=== PATIENT | female | born 1995 | race Caucasian/White ===

== ENCOUNTER 2018-10-10 15:52 | Outpatient (REF) | payer OTHER, SELFPAY ==
--- NOTE | 2018-10-10 15:25 | PAPFT_PTH ---
PATIENT: Parul Edmond LOC: [facility] U#:[id number] AGE/SX: 23/F ROOM: RE10/10/[address]: Phyllis Dyer : 1995 BED: DIS: 10/10/2018 SPEC #: [id number] RECD: 10/10/18 17:46 STATUS: BENITA CHAVEZ #: [id number] DARBY: 10/10/18 15:[address]: Phyllis Dyer DEPT: FORMERLY [facility], [facility]–1983 Cytology RECD BY: Gisela Perkins ENTERED: 10/10/18 17:46 SP TYPE: PAPFT LAN DR: None Tissues: 1 - CX/ENDOCX FOR PAP SMEARS Procedures: PAP THIN PREP/[facility] Screening Comments: [id number]
[2018-10-12 14:50] LABS: Chlamydia Result Negative; GC Result Negative; Specimen Description CERVIX
== END 2018-10-10 16:12 ==
LOC: LBN 15:52
PROVIDERS: Visit Provider Obstetrics & Gynecology Gynecology
DX: Z11.3 Encounter for screening for infections with a predominantly sexual mode of transmission (principal); Z12.4 Encounter for screening for malignant neoplasm of cervix
CPT/HCPCS: 87491; 87591; 88142

== ENCOUNTER 2019-03-26 07:54 | Outpatient (CLI) | payer OTHER, SELFPAY ==
[2019-03-26 16:21] LABS: HCT 37.4 % (36.0-46.0); HGB 11.8 g/dL (12.0-15.5); Mean Corp. HGB Concentration 31.6 g/dL (32.0-36.0); Mean Corpuscular Hemoglobin 26.9 pg (27.0-33.0); Mean Corpuscular Volume 85.2 fL (80-95); Mean Platelet Volume 10.1 fL (8.0-11.0); Platelet Count 299 x1000/uL (130-400); RBC 4.39 m/cumm (4.00-5.20); RBC Distribution Width 12.6 % (11.7-14.6); White Blood Cell Count 6.84 k/cumm (4.4-10.8)
== END 2019-03-26 08:14 ==
PROVIDERS: Visit Provider Obstetrics & Gynecology Gynecology
DX: Z30.2 Encounter for sterilization (principal); Z01.812 Encounter for preprocedural laboratory examination; Z01.818 Encounter for other preprocedural examination
CPT/HCPCS: 36415; 85027; 86850; 86900; 86901

== ENCOUNTER 2019-03-28 06:11 | Day surgery (SDC) | payer OTHER, SELFPAY ==
[2019-03-28] VITALS (7 sets, daily range): BP systolic 105–131; BP diastolic 60–94; PULSE 72–92; RESP 11–25; TEMP 36–36.7; O2SAT 98–100
[2019-03-28] MEDS: Lactated Ringers 1,000 ML 125 ML IV (07:01)
[2019-03-28 07:19] LABS: Anion Gap 8.6 mmol/L (3-11); BUN 10 mg/dL (7-18); CO2 25.4 mmol/L (21.0-32.0); CREATININE 0.94 mg/dL (0.55-1.02); Calcium 8.6 mg/dL (8.5-10.1); Chloride 106 mmol/L (98-107); Glucose 86 mg/dL (70-100); Potassium 4.6 mmol/L (3.5-5.1); Sodium 140 mmol/L (136-145)
[2019-03-28] MEDS: Bupivacaine 0.25% Pres-Free 30 ML VIAL (08:00)
--- NOTE | 2019-03-28 08:05 | FALL_PTH ---
PATIENT: Parul Edmond LOC: [facility] U#:[id number] AGE/SX: 23/F ROOM: RE03/28/[address]: Phyllis Dyer : 1995 BED: DIS: 03/28/2019 SPEC #: [id number] RECD: 03/28/19 12:45 STATUS: BENITA RErCistóbal #: [id number] DARBY: 03/28/19 08:[address]: Phyllis Dyer DEPT: Surgical Specimen RECD BY: Gisela Perkins ENTERED: 03/28/19 12:46 SP TYPE: Fall OTHR DR: None Tissues: 1 - FALLOPIAN TUBE (STERILIZATION) 2 - FALLOPIAN TUBE (STERILIZATION) Procedures: GROSS AND MICRO LEVEL 2 Comments: [id number]
--- NOTE | 2019-03-28 08:22 | W.PM.DSUDISC ---
Discharge Plan Disposition Patient Disposition: HOME Condition: Good Discharge Details Attending Provider: Phyllis Dyer Primary Care Provider: None,None Home Meds and New Rx's Prescriptions: No Action bupropion HCl 150 mg tablet extended release 24 hr 150 mg PO QAM Qty: 60 RF: FE 1.5/30 (28) 1.5 mg-30 mcg (21)/75 mg (7) tablet 1 tab PO DAILY Qty: 56 RF: 2 Discharge Instructions Additional Instructions: Please make a follow up appointment with Dr. Dyer in a week. Stand Alone Forms: DSU Post Gynecology Surgery Activity:: Activity as Tolerated Remove Dressings/Wound Care:: 24 hours Shower/Bathe:: 24 hours Diet:: As Tolerated Discharge Data Discharge Date/Time-TO BE ENTERED AT DEPARTURE: 03/28/19 08:25 DS: Diagnosis Discharge Diagnosis (1) Sterilization: Start date: 03/28/19 Status: Acute
[2019-03-28] MEDS: oxyCODONE 5 mg/Acetaminophen 325 mg TAB PO (09:39)
--- NOTE | 2019-03-29 14:02 | ROE_ITS ---
Operative Note Operative Note DATE OF PROCEDURE: 03/28/19 PRE-OP DIAGNOSIS: Desires sterilization POST-OP DIAGNOSIS: same PROCEDURE: Laparoscopic bilateral salpingectomy SURGEON: Phyllis Dyer AIRWORTHINESS SAFETY INSPECTOR: Angeles Gamble ANESTHESIA: AIDA ESTIMATED BLOOD LOSS: 5 PATHOLOGY: other (Bilateral fallopian tubes to pathology) COMPLICATIONS: None Patient was transported to: PACU Patient's condition: stable Indications: 23-year-old G2, P1 female who was counseled regarding permanent sterilization. She declined long-acting reversible contraception. She is sure that she does not desire any future pregnancies even if her life circumstances were to change. Findings: Normal pelvis normal upper abdomen normal adnexa normal uterus Procedure Description: Patient was taken to the operating room where she is placed in the dorsal supine position and general endotracheal anesthesia was administered without difficulty. She was prepped and draped in the usual sterile fashion. SCDs were in place and no antibiotics were administered. A surgical timeout was performed. Attention was turned to the patient's abdomen where quarter percent Marcaine was used to infiltrate the base of the umbilicus. A 5mm skin incision was made in a vertical fold. A transabdominal ultrasound was used to measure the depth of the subcutaneous tissue and the skin around the umbilicus was tented up and a varies needle attached to carbon dioxide flow was inserted under ultrasound guidance with entry into the abdomen visualized along with a concomitant drop in the intra-abdominal pressure. Pneumoperitoneum was achieved and a 5 mm Visiport trochar was introduced through the umbilical incision and intra-abdominal placement confirmed by use of the laparoscope. Patient was placed in Trendelenburg and under direct visualization two 5 mm ports were placed in the right and left lower quadrants respectively after infiltration of the sites with quarter percent Marcaine prior to the skin incision with a scalpel. The left fallopian tube was located, grasped and followed out to its fimbriated end and a LigaSure device was then used to clamp, cauterize and transect the proximal right fallopian tube of the right uterine cornua. LigaSure was then used to sequentially clamp, cauterize and transected the mesosalpinx and attachments to the right ovary out to the fimbriated end. Transected the fallopian tube was then delivered intact through the R lower 5mm port. The right fallopian tube was grasped, followed out to its fimbriated end, sequentially cauterized and transected along the mesosalpinx to the right uterine cornua. The right uterine cornua was then cauterized and transected. The right fallopian tube was delivered through the right 5 mm trocar. Both pedicles were noted to be hemostatic. Final inspection of the pedicles was performed and under direct visualization both lower trochars were removed and t he sites found to be hemostatic. Pneumoperitoneum reduced and the 5 mm trocar umbilical port was removed and all skin incisions were sealed with skin glue. The patient was awakened, extubated and transported to recovery area in stable condition all sponge lap needle counts correct x2.
== END 2019-03-28 10:50 | disposition home or self-care (01) ==
LOC: SUR 06:11
PROVIDERS: Visit Provider Obstetrics & Gynecology Gynecology
PROC: (CPT 58661; principal; 2019-03-28 07:30)
DX: Z30.2 Encounter for sterilization (principal)
CPT/HCPCS: 58661; 36415; 80048; 81025; 88302; J1100; J1885; J2250; J2405; J3010

== ENCOUNTER 2021-09-05 18:01 | Emergency (ER) | payer OTHER, SELFPAY ==
[2021-09-05 18:07] VITALS: BP 129/77; PULSE 83; RESP 16; TEMP 36.7; O2SAT 100
--- NOTE | 2021-09-05 18:45 | DI.CT_ITS ---
Exam(s) CT HEAD WO EXAM: CT HEAD WO CLINICAL HISTORY: Fall, head injury. TECHNIQUE: Imaging Protocol: Axial computed tomography images with coronal and sagittal reformatted images were created and reviewed COMPARISON: No exams were available for comparison FINDINGS: There are no skull fractures nor fluid in the visualized paranasal sinuses. There is no evidence of intracranial hemorrhage, mass effect, or shift of midline structures. There are no extra-axial fluid collections. The ventricles are not enlarged or shifted and there is no blo od within the ventricular system nor within the basal cisterns. IMPRESSION: No acute intracranial findings on this noninfused CT scan of the brain. RADIATION DOSE DELIVERED: 664.58mGy.cm Total DLP DATA REPOSITORY: All CT scans at this facility are submitted to the National Radiology Data Registry (NRDR) Dose Index Registry (DIR) with the [employer] (ACR). RADIATION OPTIMIZATION: All CT scans at this facility use at least one of these dose optimization te chniques: automated exposure control; mA and/or kV adjustment per patient size (includes targeted exa ms where dose is matched to clinical indication); or iterative reconstruction.
[2021-09-05 18:56] VITALS: BP 118/89; PULSE 85; RESP 16; TEMP 36.6; O2SAT 99
--- NOTE | 2021-09-05 19:00 | W.ED.GENAD ---
Discharge Plan Disposition Patient Disposition: HOME Condition: Stable Discharge Details Clinical Impression: Closed head injury Primary Care Provider: None,None ED Provider: Saira Montero Home Meds and New Rx's Prescriptions: No Action citalopram [Celexa] 20 mg tablet 20 mg PO DAILY Qty: 90 0RF Rx Instructions: Take one tablet nightly as we discusssed. Discharge Instructions Instructions: Concussion (ED), Head Injury (ED) Additional Instructions: At this time head CT shows no bone fractures or bleeding or any intracranial abnormality. Follow up with primary care provider in 3-5 days. Return to ED sooner if any worsening or concerns. Increase oral fluids. Please take Tylenol or Ibuprofen with food every 4-6 hours as needed for pain and swelling. You may apply ice to the area as needed. Medical Decision Making 26-year-old female presents to the ER chief complaint of closed head injury which occurred prior to arrival. Patient reports that she slipped on the ice and fell back hitting the back of her head. She denies any loss of consciousness denies any neck pain. She reports that initially she felt dazed and she developed a headache approximately 20 minutes ago. She denies any nausea vomiting or any other injuries. She does have a small hematoma noted to her occipital scalp, no laceration or bleeding noted. She is alert and oriented x4 no focal neuro deficits noted. CT head without contrast ordered and, Tylenol. EXAM: ? CT HEAD WO CLINICAL HISTORY: ? Fall, head injury. ? TECHNIQUE:? Imaging Protocol: Axial computed tomography images with coronal and sagittal reformatted images were created and reviewed COMPARISON:? No exams were available for comparison FINDINGS: ?There are no skull fractures nor fluid in the visualized paranasal sinuses. There is no evidence of intracranial hemorrhage, mass effect, or shift of midline structures.? There are no extra-axial fluid collections.? The ventricles are not enlarged or shifted and there is no blood within the ventricular system nor within the basal cisterns. IMPRESSION: No acute intracranial findings on this noninfused CT scan of the brain. Directions given to patient closed head injury and concussion instructions given to patient. Relayed strict return instructions and home care. This text was generated using [employer] system, please disregard any oddities of phrase or misspellings. HPI General Mode of arrival: ambulatory. Date/Time Provider Initiated Documentation: 09/05/21 18:56. Limitations to Documentation: no limitations. Information obtained by: patient and RN notes reviewed. HPI Narrative: 26-year-old female presents to the ER chief complaint of closed head injury which occurred prior to arrival. Patient reports that she slipped on the ice and fell back hitting the back of her head. She denies any loss of consciousness denies any neck pain. She reports that initially she felt dazed and she developed a headache approximately 20 minutes ago. She denies any nausea vomiting or any other injuries. She does have a small hematoma noted to her occipital scalp, no laceration or bleeding noted. She is alert and oriented x4 no focal neuro deficits noted. Related Data Home Medications Medication Instructions Recorded Confirmed citalopram 20 mg tablet (Celexa) 20 mg PO DAILY #90 tab 02/05/21 09/05/21 Previous Rx's Medication Instructions Recorded citalopram 20 mg tablet (Celexa) 20 mg PO DAILY #90 tab 02/05/21 Allergies Allergy/AdvReac Type Severity Reaction Status Date / Time No Known Drug Allergies Allergy Unverified 09/05/21 18:10 General Stated Complaint: HeadInjury CHIKIS: 3 Review of Systems All systems reviewed & are unremarkable except as noted in HPI and below Constitutional Constitutional: Reports headache(s) ENT Ears, Nose, Mouth, and Throat: Reports headache(s), Denies epistaxis and Denies neck pain Musculoskeletal Musculoskeletal: Denies neck pain Neurologic Neurologic: Reports headache(s) [facility] [place] All Active Problems (Updated 09/05/21 @ 20:04 by Saira Montero) Closed head injury (Acute) Well woman exam (no gynecological exam) (Acute) Depression (Chronic) Well woman exam (Acute) Sterilization (Acute) 03/28/19. laparoscopic bilateral salpingectomy Post-traumatic stress disorder (Acute) Generalized anxiety disorder (Acute) 09/2018 Buspar. 03/2019 Buspar d/c'd. Bupropion 150mg XL started. Anxiety and depression (Acute 01/05/18) Rx with citalopram 12/2017 Medical History Anxiety longstanding. currently not taking meds. Contraception 11/13/14 Mirena IUD inserted 3mo PP 12/26/14 Mirena IUD out. 6/26/15 Nexplanon inserted 02/27/15 Nexplanon out. NuvaRing initiated. 2019. partner has vasectomy Family History Other Cancer Mental disorder Social History Smoking/Tobacco Use Status: Never Smoking risk assessment performed?: Yes Alcohol Intake: never Drug use: Never Substance use type: does not use Household members: significant other, children and other Details: BF Wilber, son Don, and Wilber' 13, 9yo daughters Number of Children: 1 Do you need help understanding health information?: Never Sexually active: Yes Seatbelt use: always Do you feel safe at home: Yes Do you feel safe in your relationship?: Yes Additional Social history: 07/23/14. [employer]. employed as water safety teacher - infant room. Beginning [employer] college classes. Female Reproductive History Menstrual control method: none History History 2 Para Hx # Term Pregnancies 1 Multiple births Hx # Pregnancies Ectopic pregnancies AB induced Hx Number of Living Children AB spontaneous Exam Narrative Exam Narrative: General: Well Developed, Awake and Alert, conversant. Skin: Warm and Dry HEENT: Head: Small hematoma noted to the occipital scalp. No palpable deformities, Normocephalic Eyes: Pupils PERRLA, EOM's intact. No periorbital eccymosis or step off Ears: Canal patent. Tympanic membranes are clear . No puentes's sign, no hemptympanum. Nose/Face: Atraumatic. Facial bones nontender to palpation and stable with manipulation. Mouth/Throat: No intraoral trauma. Teeth and mandible are intact. Neck: No midline tenderness, no step off, no deformity to palpation of C-spine. Trachea midline. Pelvis: Nontender to palpation and stable to compression. Femoral pulses strong and equal Extremities: no surface trauma. Sensation intact. Peripheral pulses intact and equal. Neuro: ANO x4, GCS 15, cranial nerves II through XII intact. Motor and sensory exam nonfocal. Reflexes are symmetric. Course Vital Signs Vital signs: Vital Signs Temperature 36.7 C 09/05/21 18:07 Pulse 83 09/05/21 18:07 Respiratory Rate 16 09/05/21 18:07 Blood Pressure 129/77 09/05/21 18:07 Pulse Oximetry 100 09/05/21 18:07 Temperature 36.6 C 09/05/21 18:56 Temperature Source Oral 09/05/21 18:56 Pulse 85 09/05/21 18:56 Respiratory Rate 16 09/05/21 18:56 Respiratory Effort 09/05/21 18:53 Respiratory Depth Normal 09/05/21 18:53 Respiratory Pattern Normal 09/05/21 18:53 Blood Pressure 118/89 09/05/21 18:56 Blood Pressure Position Supine 09/05/21 18:07 Pulse Oximetry 99 09/05/21 18:56 Oxygen Delivery Method Room Air 09/05/21 18:56 Oxygen Flow Rate 0 09/05/21 18:56 Pain Level 5 09/05/21 18:07
[2021-09-05] MEDS: Acetaminophen 500 MG TAB 1000 MG PO (19:15)
[2021-09-05 19:27] VITALS: BP 119/88; PULSE 87; RESP 18; TEMP 36.8; O2SAT 99
--- NOTE | 2021-09-05 20:01 | DI.VRAD_ITS ---
PROCEDURE INFORMATION: Exam: CT Head Without Contrast Exam date and time: 09/05/2021 7:00 PM Age: 26 years old Clinical indication: Condition or disease; Other: Fall, head injury TECHNIQUE: Imaging protocol: Computed tomography of the head without contrast. COMPARISON: No relevant prior studies available. FINDINGS: Brain: Normal. No hemorrhage. Unremarkable white matter. No mass effect. Cerebral ventricles: No ventriculomegaly. Paranasal sinuses: Visualized sinuses are unremarkable. No fluid levels. Mastoid air cells: Visualized mastoid air cells are well aerated. Bones/joints: Unremarkable. No acute fracture. Soft tissues: Unremarkable. IMPRESSION: No acute intracranial abnormality. Dictated and Authenticated by: Everardo Anders MD. Ordering:LIVE Chávez MD
== END 2021-09-05 20:04 | disposition home or self-care (01) ==
PROVIDERS: Emergency Provider Registered Nurse Emergency
DX: S09.8XXA Other specified injuries of head, initial encounter (principal); W00.0XXA Fall on same level due to ice and snow, initial encounter; R51.9 Headache, unspecified
CPT/HCPCS: 99284; 70450; 99283

== ENCOUNTER 2021-12-03 12:18 | Outpatient (REF) | payer OTHER, SELFPAY ==
--- NOTE | 2021-12-03 11:05 | PAPFT_PTH ---
PATIENT: Parul Edmond LOC: [facility] U#:[id number] AGE/SX: 26/F ROOM: RE12/03/[address]: Phyllis Dyer : 1995 BED: DIS: 12/03/2021 SPEC #: [id number] RECD: 12/03/21 12:59 STATUS: BENITA REQ #: [id number] DRABY: 12/03/21 11:[address]: Phyllis Dyer DEPT: [facility] Cytology RECD BY: Gisela Perkins ENTERED: 12/03/21 12:59 SP TYPE: PAPFT OT DR: None Tissues: 1 - CX/ENDOCX FOR PAP SMEARS Procedures: PAP THIN PREP/[facility] Screening Comments: [id number]
== END 2021-12-03 12:19 | disposition home or self-care (01) ==
LOC: LBN 12:18
PROVIDERS: Visit Provider Obstetrics & Gynecology Gynecology
DX: Z12.4 Encounter for screening for malignant neoplasm of cervix (principal)
CPT/HCPCS: 88142

== ENCOUNTER → 2024-02-06 01:18 | Outpatient (CLI) | payer BC, SELFPAY ==
--- NOTE | 2024-02-06 | DI.US_ITS ---
Exam(s) MAMMO DIAGNOSTIC BI US BREAST LT LIMITED EXAM: MAMMO DIAGNOSTIC BI and U/S breast LT limited CLINICAL HISTORY: 2cm lump, 6 o'clock below areola, L breast,n63.20. TECHNIQUE: Craniocaudal and mediolateral oblique Full Field Digital Mammography views with Computer Aided Diagnosis followed by Tomosynthesis and left breast ultrasound. The 11 and 12 o'clock position of the left breast was evaluated sonographically. In addition, the 4 o'clock position of the left b reast was evaluated sonographically. COMPARISON: This is a baseline mammogram. There are no priors for comparison. FINDINGS: Mammography/Tomosynthesis: Masses/Architectural Distortion: None seen. Microcalcifictions: No suspicious pleomorphic-type are seen. Skin Thickening/Nipple Retraction: None. Limited left breast US: Echotexture: Normal appearance of the glandular tissue. Shadowing: No suspicious foci. Cyst: There is an anechoic 0.6 x 0.5 x 0.7 cm lesion at the 4 o'clock position of the left breast 3 c m from the nipple most suggestive of a cyst. Solid lesions: None seen. Ductal dilation: None. IMPRESSION: 1. No definite evidence of malignancy is noted. 2. A six-month follow-up limited left breast ultrasound is requested for re-evaluation. 3. The findings were discussed with the patient on the date of the examination. BI-RADS Category 3 - 6 month - Probably Benign Finding: Recommend follow-up imaging in 6 months Breast Density - Category C - Heterogeneously dense Breast density Category C or D implies that the patient has dense breast tissue. Dense breast tissue can make it harder to find cancer on a mammogram. Dense breast tissue is also associated with an incr eased risk of breast cancer. This information about the result of the mammogram report was provided to the patient to raise their awareness. Use this report when you speak with the patient about their risks for breast cancer, which includes their family history. At that time, you may recommend additional screening tests (Ultrasoun d or MRI) as these tests may add significant information. A negative radiographic report should not delay biopsy if a dominant or clinically suspicious mass is present. Up to ten percent of cancers are not identified on mammography. A negative report may reinforce clinical impression. Adenosis and dense breasts may obscure an underlying neoplasm. False positive reports average 6 to 10%. Patient will receive a letter notifying them of these results.
== END ==
PROVIDERS: Visit Provider Obstetrics & Gynecology Gynecology
DX: N63.20 Unspecified lump in the left breast, unspecified quadrant (principal); R92.332 Mammographic heterogeneous density, left breast
CPT/HCPCS: 76642; 77062; 77066; G0279

== ENCOUNTER 2024-07-03 02:54 | Outpatient (CLI) | payer BC, SELFPAY ==
[2024-07-03 11:19] LABS: HGB 10.6 g/dL (11.2-15.7); MCH 24.1 pg (27.0-33.0); MCHC 30.3 % (32.0-36.0); MCV 80 fL (80-95); MPV 9.3 fL (8.0-11.0); Platelet Count 277 10^3/uL (130-400); RBC 4.39 10^6/uL (3.93-5.22); RDW 14.5 % (11.7-14.6); RDW-SD 42.5 fL; WBC 6.09 10^3/uL (4.4-10.8)
[2024-07-03 12:06] LABS: ALT 10 U/L (14-59); AST 11 U/L (15-37); Albumin 3.6 g/dL (3.4-5.0); Alkaline Phosphatase 99 U/L (46-116); Anion Gap 6.6 mmol/L (3-11); BUN 12 mg/dL (7-18); Bilirubin, Total 0.22 mg/dL (0.2-1.0); CO2 25.4 mmol/L (21.0-32.0); CREATININE 0.8 mg/dL (0.55-1.02); Calcium 8.6 mg/dL (8.5-10.1); Chloride 106 mmol/L (98-107); Estimated GFR 102.86 (mL/min/1.73m2); Glucose 90 mg/dL (74-106); Potassium 4.4 mmol/L (3.5-5.1); Sodium 138 mmol/L (136-145); Total Protein 7.4 g/dL (6.4-8.2)
== END 2024-07-03 02:55 | disposition home or self-care (01) ==
LOC: LBO 02:54
PROVIDERS: Visit Provider Obstetrics & Gynecology Gynecology
DX: Z01.818 Encounter for other preprocedural examination (principal)
CPT/HCPCS: 36415; 80053; 85027; 86850; 86900; 86901

== ENCOUNTER 2024-07-04 10:32 | Observation (INO) | payer BC, SELFPAY ==
[2024-07-04] VITALS (31 sets, daily range): BP systolic 93–124; BP diastolic 44–85; PULSE 49–83; RESP 11–18; TEMP 36–36.8; O2SAT 95–100; BMI 24.0
--- NOTE | 2024-07-04 06:54 | ANES.PREOP_ITS ---
General Info Date of Service Date Performed: 07/04/24 Height: 5 ft 6 in Weight: 67.7 kg Body Mass Index (BMI): 24.0 Surgical Procedure: Operation Date: 07/04/24 07:40 Proposed Procedure Side Surgeon p Hysterectomy Vaginal Laparoscopic Assist Phyllis Dyer MD Meds Allergies and Home Medications Allergies Allergy/AdvReac Type Severity Reaction Status Date / Time No Known Allergies Allergy Verified 07/04/24 06:23 Home Medication ?Medication ?Instructions ?Recorded multivitamin 1 tab PO DAILY 07/03/24 Current Visit Medications: Current Medications Generic Name Dose Route Start Last Admin Trade Name Freq PRN Reason Stop Dose Admin Cefazolin Sodium/Dextrose 2 gm in 50 mls @ 100 mls/hr 07/04/24 06:00 Ancef Duplex IVPB 07/04/24 23:59 PREOP ESA Sodium Chloride 1,000 mls @ 80 mls/hr 07/04/24 06:30 Saline 1000ml Bag IV 08/03/24 06:29 INFUSION ESA IV Miscellaneous Supplies 1 each 07/04/24 06:00 Iv Access IV 07/04/24 23:59 DIRECTED ESA Sodium Chloride 0 ml 07/04/24 06:00 Normal Saline Flush 10 Ml Syr IV 07/04/24 23:59 PRN PRN Sodium Chloride 0 ml 07/04/24 06:00 Normal Saline 10 Ml Vial IJ 07/04/24 23:59 DIRECTED PRN Sterile Water 0 ml 07/04/24 06:00 Water,Injection,Sterile 10 Ml Vial IJ 07/04/24 23:59 DIRECTED PRN PFSH Active Problems Active Problems: Problem Status Onset Code Pre-op exam Acute Z01.818 Heavy menses Acute N92.0 Dysmenorrhea Acute N94.6 Left breast lump Acute N63.20 Depression Chronic F32.9 Post-traumatic stress disorder Acute F43.10 Generalized anxiety disorder Acute F41.1 Anxiety and depression Acute 01/05/18 F41.9, F32.9 Medical History Medical History Sterilization 03/28/19. laparoscopic bilateral salpingectomy Anxiety longstanding. currently not taking meds. Contraception 11/13/14 Mirena IUD inserted 3mo PP 12/26/14 Mirena IUD out. 01/10/15 Nexplanon inserted 8/13/15 Nexplanon out. NuvaRing initiated. 2019. partner has vasectomy Medical History Comments:: Pt. states not potential triggers from PTSD as this t sydnee. Tobacco Smoking/Tobacco Use Status: Never Passive smoking exposure: No Alcohol Alcohol Intake: never Substance Use Substance use: Never Substance use type: does not use Prental History History 2 Para Hx # Term Pregnancies 1 Multiple births Hx # Pregnancies Ectopic pregnancies AB induced Hx Number of Living Children AB spontaneous Vital Signs and Lab Results Vital Signs Most Recent Vital Signs in EMR: Most Recent Vital Signs Temp Pulse Resp BP Pulse Ox 36.8 C 83 16 124/85 100 07/04/24 06:35 07/04/24 06:35 07/04/24 06:35 07/04/24 06:35 07/04/24 06:35 Lab Results Blood Type / Crossmatch: Antibody Screen NEGATIVE 07/03/24 Complete Blood Count: White Blood Count 6.09 10^3/uL (4.4-10.8) 07/03/24 11:12 Red Blood Count 4.39 10^6/uL (3.93-5.22) 07/03/24 11:12 Hemoglobin 10.6 g/dL (11.2-15.7) L 07/03/24 11:12 Hematocrit 35.0 % (36.0-46.0) L 07/03/24 11:12 Platelet Count 277 10^3/uL (130-400) 07/03/24 11:12 Complete Metabolic Panel: Sodium 138 mmol/L (136-145) 07/03/24 11:12 Potassium 4.4 mmol/L (3.5-5.1) 07/03/24 11:12 Chloride 106 mmol/L (98-107) 07/03/24 11:12 Carbon Dioxide 25.4 mmol/L (21.0-32.0) 07/03/24 11:12 BUN 12 mg/dL (7-18) 07/03/24 11:12 Creatinine 0.8 mg/dL (0.55-1.02) 07/03/24 11:12 Est GFR (CKD-EPI 2020) 102.86 (mL/min/1.73m2) 07/03/24 11:12 Calcium 8.6 mg/dL (8.5-10.1) 07/03/24 11:12 Albumin 3.6 g/dL (3.4-5.0) 07/03/24 11:12 Glucose 90 mg/dL (74-106) 07/03/24 11:12 Liver Function Panel: Alanine Aminotransferase (ALT/SGPT) 10 U/L (14-59) L 07/03/24 1 1:12 Aspartate Amino Transf (AST/SGOT) 11 U/L (15-37) L 07/03/24 11: 12 Coagulation Panel: No Data to Display Cardiac Panel: No Data to Display Arterial Blood Gas: No Data to Display Venous Blood Gas: No Data to Display Pancreas Panel: No Data to Display Thyroid Panel: No Data to Display Infectious Disease: No Data to Display Blood Cultures: No Data to Display Toxicology Panel: No Data to Display Panel: No Data to Display Anesthesia Assessment and Plan Anesthesia History Personal History: No History of Anesthesia Complications Family History: No Family History of Anesthesia Complications Exercise Tolerance Exercise Tolerance: Metabolic Equivalents>4 Pertinent Negatives Pertinent Negatives: No Symptoms of GERD, No Major Cardiovascular Symptoms or Complaints, No Major Pulmonary Symptoms or Complaints and No History of CVA/TIA Cardiac & Pulmonary Exam Cardiac Exam: Normal S1/S2 Heart Sounds Pulmonary Exam: Clear Bilateral Breath Sounds Implantable Cardiac Device Does patient have a Pacemaker or an ICD?: No Airway Exam Known Difficult Airway: No Mallampati Class: 2 Mouth Opening: Normal (> 3cm) Thyromental Distance: Greater than 3 cm Neck Range of Motion: Full ROM Neck Circumference: Normal Teeth Condition: Normal Dentition ASA Classification ASA Score: ASA 1 Emergency Case?: No NPO Status NPO Status: NPO Clears >2 hours, Solids >8 hours Status Status: Negative HCG Anesthesia Plan Resuscitation Status: Full Code Anesthesia Technique: General Anesthesia Airway Planned: Endotracheal Tube Pain Management: Intrathecal Analgesia (Post operative pain control) Monitors Used: Standard Monitors and SedLine
[2024-07-04] MEDS: Normal Saline 1,000 ML 80 ML IV (06:59)
[2024-07-04] MEDS: ceFAZolin 2 GM/50 ML BAG IVPB (08:02)
[2024-07-04] MEDS: Bupivacaine 0.25% Pres-Free 30 ML VIAL (08:34)
[2024-07-04] MEDS: Lidocaine 1% Multi-Dose W/EPI 1/100,000 50 ML VIAL (08:48)
--- NOTE | 2024-07-04 09:16 | UTER_PTH ---
PATIENT: Parul Edmond LOC: U#:[id number] AGE/SX: 28/F ROOM: 217 RE07/04/[address]: Phyllis Dyer : 1995 BED: A DIS: 07/05/2024 SPEC #: [id number] RECD: 07/04/24 13:00 STATUS: BENITA CHAVEZ #: [id number] DARBY: 07/04/24 09:[address]: Phyllis Dyer DEPT: Surgical Specimen RECD BY: Gisela Perkins Tissues: 1 - UTERUS W OR W/O OVARIES(NOT TUMOR/PROLAPSE) Procedures: GROSS AND MICRO LEVEL 5 Comments: [id number]
[2024-07-04] MEDS: fentaNYL 100 MCG/2 ML VIAL IVP (10:44)
[2024-07-04] MEDS: Lactated Ringers 1,000 ML 125 ML IV ×2 (12:14→20:16)
[2024-07-04] MEDS: Acetaminophen 500 MG TAB PO ×2 (12:26→17:50)
[2024-07-04] MEDS: Ketorolac 30 MG/ML VIAL IVP ×2 (15:49→21:02)
[2024-07-04] MEDS: Normal Saline Flush 10 ML SYR IV (15:49)
--- NOTE | 2024-07-04 16:47 | W.PM.OP ---
Operative Note Operative Note PRE-OP DIAGNOSIS: dysmenorrhea POST-OP DIAGNOSIS: same PROCEDURE: laparoscopic assisted vaginal hysterectomy and bladder cystoscopy SURGEON: Phyllis Dyer ASSISTING SURGEON: Ashley Newsome ANESTHESIA TYPE: General LMA/ETT and Spinal Refer to Anesthesia Record ESTIMATED BLOOD LOSS: 50 PATHOLOGY: other (uterus and cervix) COMPLICATIONS: None Patient was transported to: PACU Patient's condition: stable Indications: 27 yo who 3yr hx of heavy, painful regular menses. Heavy flow with clots has interfered with ADLs. Pt reports poor tolerance of hormonal bases contraception. She had a BTL for the purpose of avoiding any hormonal contraception. Pt requests definitive treatment in the form of a hysterectomy. Findings: Filmy adhesions of the R pelvic side wall to the small intestines. The adhesions were not in the operative field and were not reduced. Normal appearing uterus and adnexa. Functional cyst L ovary. Normal upper abdomen. Procedure Description: Patient was taken to the operating room where she received spinal anesthesia. She was then placed in the dorsal supine position and general endotracheal anesthesia was administered without difficulty. She was positioned in the dorsal lithotomy position in yellowfin stirrups with SCDs in place. After being prepped and draped in the usual sterile fashion a surgical timeout was performed. She received 2 g of Ancef prior to skin incision. Hobbs catheter was placed to gravity drainage. A bivalve speculum was placed in the vagina the anterior lip of the cervix was grasped with a single-tooth tenaculum. A uterine manipulator was successfully inserted into the uterine cavity and left in place for the remainder of the case. The single tooth tenaculum and the speculum were removed. Attention was then turned to the patient's abdomen. The umbilical fold was infiltrated with 0.25% Marcaine without epinephrine. A scalpel was then used to make a 12mm vertical skin incision in the umbilical fold. Two penetrating towel clips were used to tent up the skin and through the periumbilical incision and a Veres needle was introduced into the abdomen with carbon dioxide as the distention medium. Intra-abdominal placement was confirmed by a drop in the intra-abdominal pressure. Once a pneumoperitoneum was established a 12 mm Visiport was placed under direct visualization. Patient was then placed in Trendelenburg position. The skin was infiltrated with 1cc of 0.25% Marcaine without epinephrine at two sites 6 cm diagonal from the umbilical incision. Those sites were incised with a scalpel and two 5 mm lower ports were placed under direct visualization. After careful inspection of the pelvis a LigaSure electrocautery device was used to clamp, cauterize and sequentially transect the right proper ovarian ligament from its attachment to the body of the uterus. The right round ligament and right broad ligament were then clamped, cauterized and transected to the level of the lower uterine segment. The vesico-uterine peritoneum was incised and the the from the lower uterine segment and mobilized off of the body of the cervix. The pedicles of the right uterine round and broad ligaments were inspected and noted to be hemostatic. On the contralateral side the left proper ovarian ligament, round, and right broad ligament were sequentially clamped, cauterized and transected using the Ligasure device to the level of the insertion of the uterine artery. The remaining the vesicouterine peritoneum was incised across the lower uterine segment and the bladder flap created using the Ligasure device and gently counter traction. All pedicles were inspected and noted to be hemostatic. Decision was made to proceed with the vaginal portion of the case. Laparoscopic instruments were removed from the ports , the pneumoperitoneum was reduced, and the was abdomen covered with sterile drape. A weighted vaginal speculum was placed in the vagina and the anterior and posterior lips of the cervix were grasped with Atvo clamps. Body of the cervix was circumferentially infiltrated with 1% lidocaine solution of epinephrine. A circumferential incision of the cervical epithelium was made with a Bovie electrocautery. The posterior cul-de-sac was entered sharply and through the this incision a long billed weighted speculum was placed. The left and right uterosacral ligament complexes were identified clamped, transected and suture-ligated and the suture held long. The vesicouterine fascia was identified and the anterior cul-de-sac bluntly sharply. Through this incision a curved right angled retractor was inserted and used to retract the bladder away from the operative field. The remaining right and left broad ligament attatchments were sequentially clamped, cauterized, and transected and the specimen was passed off of the operative field. The vaginal cuff was reapproximated in a horizontal fashion with a running suture of 0 Vicryl. Instruments removed from the vagina and attention was again turned to the abdomen where a pneumoperitoneum was reestablished and the pelvis inspected using the laparoscope. The vaginal cuff was intact and was hemostatic as were the round ligament and broad ligament pedicles. The instruments were removed from the port sites, the pneumoperitoneum reduced and the ports removed. The fascia of the periumbilical skin incision was closed with interrupted suture of 0 Vicryl. The skin of all port site incisions were reapproximated with a subcuticular closure of 4-0 Monocryl and and covered with sterile steri-strips and a band-aid. A cystoscopy was performed with both ureteral jets were patent with a brisk eflux of urine noted from each. The bladder was inspected and was normal in appearance. Hobbs catheter was reinserted to gravity drainage and the patient was placed in the dorsal supine position, awakened, extubated, and transported recovery area in stable condition. All sponge lap needle counts correct x2. Date of Procedure: 07/04/24
--- NOTE | 2024-07-04 20:33 | W.PM.PROGNOT ---
Date of Service Date of service: 07/04/24 Time of Service: 19:00 Assessment and Plan Assessment and plan (1) S/P laparoscopic assisted vaginal hysterectomy (LAVH): Status: Acute Assessment and plan: POD 0. Satisfactory postop course. Pt will have cao discontinued in am and OOB. Plan discharge to home in am. Subjective Subjective Patient reports: no new complaints and tolerating a regular diet Interval history since last seen: Pt reports generalized soreness, otherwise feels well. Exam Narrative Exam Narrative: POD 0 s/p LAVH for hx of dysmenorrhea. Surgery was uncomplicated. Pt sitting up in bed visiting with family. Const General: no acute distress Nutritional Appearance: well nourished Orientation: alert, awake and oriented x3 Neck Neck: normal visual inspection Resp Effort & Inspection: normal respiratory effort GI Inspection: incision (covered with Mepilex dressing) Palpation: soft and nontender Skin General skin exam: no rashes or lesions noted Neuro Cognition: normal cognition Speech: speech normal Gait: normal gait Extrem General: full ROM (SCDs in place) Psych Speech and Movement: speech and movement normal Mood: congruent mood Affect: normal affect Objective Last Vital Signs Temp 97.7 F 07/04/24 19:48 Pulse 72 07/04/24 19:48 Resp 18 07/04/24 19:48 BP 122/77 07/04/24 19:48 Pulse Ox 100 07/04/24 19:48 PAWSS Have you Been Recently Intoxicated or Drunk Within the Last 30 days?: No Have you Ever Experienced Previous Episodes of Alcohol Withdrawal?: No Have you ever Experienced Withdrawal Seizures?: No Have you ever Experienced Delirium Tremens(DT)s?: No Have you ever undergone Alcohol Rehabilitation Treatment (i.e, inpt ot outpatient treatment programs)?: No Have you ever Experienced Blackouts?: No Have you ever Combined Alcohol with other Downers within the last 90 days?: No Have you ever Combined Alcohol with any other Substance of Abuse during the last 90 days?: No Positive Blood Alcohol level on Presentation? [PCS.BAL]: No Result: 0 Time Spent with Patient Time Spent with Patient: <25 minutes Time was spent: preparing to see the patient(eg.review tests) and counseling the patient
[2024-07-04] MEDS: Docusate Sodium 100 MG CAP PO (21:02)
[2024-07-05] MEDS: Ketorolac 30 MG/ML VIAL IVP (03:11)
[2024-07-05 03:20] VITALS: BP 102/56; PULSE 84; RESP 16; TEMP 37.3; O2SAT 99
[2024-07-05] MEDS: Acetaminophen 500 MG TAB PO ×2 (04:05→09:39)
[2024-07-05] MEDS: oxyCODONE 5 MG TAB PO (06:27)
[2024-07-05 07:09] LABS: HCT 28.5 % (36.0-46.0); HGB 8.8 g/dL (11.2-15.7); MCH 24.4 pg (27.0-33.0); MCHC 30.9 % (32.0-36.0); MCV 79 fL (80-95); MPV 10.1 fL (8.0-11.0); Platelet Count 214 10^3/uL (130-400); RBC 3.61 10^6/uL (3.93-5.22); RDW 14.5 % (11.7-14.6); RDW-SD 42.3 fL; WBC 12.97 10^3/uL (4.4-10.8)
[2024-07-05 08:01] VITALS: BP 102/68; PULSE 68; RESP 15; TEMP 36.9; O2SAT 97
--- NOTE | 2024-07-05 08:26 | W.ANESPOSTOP ---
Postoperative Evaluation Date, Time and Location Date Performed: 07/05/24 Time Performed: 08:20 Patient Location: Day Surgery Unit Vital Signs Most Recent Imported Vital Signs: Most Recent Vital Signs Temp Pulse Resp BP Pulse Ox 36.9 C 68 15 102/68 97 07/05/24 08:01 07/05/24 08:01 07/05/24 08:01 07/05/24 08:01 07/05/24 08:01 Pain Score Most Recent Pain Score: Most Recent Pain Score Pain Level 3 07/05/24 08:01 Assessment Mental Status: Awake (Alert & Oriented to Patient Baseline) Airway and Respiratory Function: Patent airway with normal (patient baseline) respiratory exam Cardiovascular Function: Hemodynamically Stable Hydration Status: Adequately Hydrated Nausea & Vomiting: No Nausea or Vomiting Pain: Pain is Moderate or Severe Postoperative Pain Management: Pain being addressed with medication Peripheral Nerve Block: Patient did not receive a nerve block
--- NOTE | 2024-07-05 09:08 | W.PM.DS.N ---
Date of service: 07/05/24 Time of Service: 09:08 DS: Diagnosis Discharge Diagnosis (1) S/P laparoscopic assisted vaginal hysterectomy (LAVH): Status: Acute Discharge Plan Disposition Patient Disposition: Home Condition: Stable Discharge Details Reason For Visit: dysmenorrhea, Laparoscopic assist vag hysterectomy Admit Date/Time: 07/04/24 10:32 Admit Provider: Phyllis Dyer Attending Provider: Phyllis Dyer Hospital Course Hospital Course: 27 yo with 3yr hx of heavy, painful regular menses was admitted morning of 07/04/24 and underwent an uncomplicated LAVH with nl bladder cystoscopy. Discharged to home on POD 1 tolerating a regular diet and voiding successfully after cao catheter removed. Pain controlled with NSAIDs and Percocet. Will follow up at [facility] in 2 weeks for postop check. Rx for Percocet efaxed to her pharmacy. Home Meds and New Rx's Prescriptions: No Action multivitamin Tablet 1 tab PO DAILY Discharge Instructions Additional Instructions: Keep your follow up appointment with Dr. Dyer in 2 weeks. If one has not been scheduled then please call the office and make a postop appointment. You have steristrips and bandaids covering your incisions. Leave the steristrips in place until your postop appointment with Dr. Dyer. Take Ibuprofen 600mg of over the counter tablets every 6 hours as needed for pain. You may take one tablet of Percocet 5/325mg every six hours for pain not relieved with the Ibuprofen. You may shower at anytime. No baths, nothing in the vagina including tampons until you have been seen for your two week post op appointment. Stand Alone Forms: [facility] Post Physical Therapy Aides Teacher SurgeryW/Incision Activity:: no heavy lifting. Equipment/Supplies:: No Equipment Needed Diet:: As Tolerated Discharge Orders Discharge Orders: Discharge Order (Routine); Ordered 07/05/24 Ordered By: Phyllis Dyer DS: Summary Time Spent with Patient providing and/or coordinating discharge services: Less than 30 minutes Status at Discharge Functional status at discharge: independent ambulation Overall status at discharge: patient is progressing back to baseline Mental Status: mental status grossly normal Speech and Movement: speech and movement normal Mood: congruent mood Affect: normal affect Quality:SDOH Health Related Social Needs: No Data to Display Exam Narrative Exam Narrative: sitting in bed, semifowlers. Cao remains in place. Const General: no acute distress Nutritional Appearance: well nourished Orientation: alert, awake and oriented x3 Resp Effort & Inspection: normal respiratory effort Auscultation: clear to auscultation bilaterally Cardio Rate: regular rate Rhythm: regular rhythm GI Inspection: incision (clean, dry and intact.) Palpation: soft, no masses and tender (mildly tender to percussion.) Skin General skin exam: no rashes or lesions noted Extrem General: normal to inspection Psych Appearance: grossly normal Mental Status: mental status grossly normal Speech and Movement: speech and movement normal Mood: congruent mood Affect: normal affect DS: Data Vitals/I&O Vitals and I&O: Vital Signs Temperature 98.4 F 07/05/24 08:01 Temperature Source Temporal Artery Scan 07/05/24 08:01 Pulse 68 07/05/24 08:01 Pulse Rhythm Regular 07/04/24 11:15 Pulse 61 07/04/24 11:01 Respiratory Rate 15 07/05/24 08:01 Respiratory Effort Normal, Non-Labored 07/04/24 11:15 Respiratory Depth Normal 07/04/24 11:15 Respiratory Pattern Normal 07/04/24 11:15 Blood Pressure 102/68 07/05/24 08:01 Blood Pressure Mean 74 07/04/24 11:01 Pulse Oximetry 97 07/05/24 08:01 Respiratory End-tidal CO2 32 07/04/24 10:50 Oxygen Delivery Method Room Air 07/05/24 08:01 Oxygen Flow Rate 0 07/05/24 08:01 Pain Level 3 07/05/24 08:01 Comment RN notified 07/05/24 03:20 Intake & Output 07/04/24 07/04/24 07/05/24 11:59 23:59 11:59 Intake Total 650 / 3150 2500 / 3150 1000 / 1000 Output Total 100 / 1200 1100 / 1200 1000 / 1000 Balance 550 / 1950 1400 / 1950 0 / 0 Weight 140 lb Intake: IV 650 / 2050 1400 / 2050 1000 / 1000 Oral 1100 / 1100 Output: Urine 50 / 1150 1100 / 1150 1000 / 1000 Estimated Blood Loss 50 / 50 Other: Urine Color Indigo Yellow Pale Urine Appearance Clear Clear Clear Comment cao catheter in place and draining Emesis Description None Data Completed and Pending Labs on day of discharge: Labs from last 24 hours 07/05/24 06:44 WBC 12.97 H RBC 3.61 L Hgb 8.8 L Hct 28.5 L MCV 79 L MCH 24.4 L MCHC 30.9 L RDW 14.5 Plt Count 214 MPV 10.1 PFSH All Active Problems (Updated 07/04/24 @ 20:47 by Phyllis Dyer MD) S/P laparoscopic assisted vaginal hysterectomy (LAVH) (Acute) 07/04/24 Heavy menses (Acute) Dysmenorrhea (Acute) Left breast lump (Acute) Depression (Chronic) Post-traumatic stress disorder (Acute) Generalized anxiety disorder (Acute) 09/2018 Buspar. 03/2019 Buspar d/c'd. Bupropion 150mg SR started. 02/2022. Buproprion dicontinued. Sertraline 25mg started. Anxiety and depression (Acute 01/05/18) Rx with citalopram 12/2017. Citalopram D/Cd. Wellbutrin x2mo 02/2022. [id number]/day 07/2022. Sertraline 50mg/day Medical History (Updated 07/04/24 @ 20:47 by Phyllis Dyer MD) Sterilization 03/28/19. laparoscopic bilateral salpingectomy Anxiety longstanding. currently not taking meds. Contraception 11/13/14 Mirena IUD inserted 3mo PP 12/26/14 Mirena IUD out. 01/10/15 Nexplanon inserted 02/27/15 Nexplanon out. NuvaRing initiated. 2018. partner has vasectomy Family History Other Cancer Mental disorder Social History Smoking/Tobacco Use Status: Never Smoking risk assessment performed?: Yes Alcohol Intake: never Drug use: Never Substance use type: does not use Household members: significant other, children and other Details: JESIKA Merino, son Don, and Wilber' 13, 9yo daughters Housing: house Number of Children: 1 Do you need help understanding health information?: Never Sexually active: Yes Seatbelt use: always Do you feel safe at home: Yes Do you feel safe in your relationship?: Yes Female Reproductive History Menstrual control method: none History History 2 Para Hx # Term Pregnancies 1 Multiple births Hx # Pregnancies Ectopic pregnancies AB induced Hx Number of Living Children AB spontaneous Time Spent with Patient Time Spent with Patient: <45 minutes Time was spent: preparing to see the patient(eg.review tests), indepentently interpreting results and counseling the patient
[2024-07-05] MEDS: Docusate Sodium 100 MG CAP PO (09:29)
[2024-07-05] MEDS: Multivitamin TAB 1 TAB PO (09:29)
[2024-07-05 09:54] VITALS: BP 102/68; PULSE 68; RESP 15; TEMP 36.9; O2SAT 97
== END 2024-07-05 10:09 | disposition home or self-care (01) ==
LOC: MS 11:13
PROVIDERS: Admitting Provider Obstetrics & Gynecology Gynecology; Visit Provider Obstetrics & Gynecology Gynecology
PROC: 0UT9FZZ Resection of Uterus, Via Natural or Artificial Opening With Percutaneous Endoscopic Assistance (ICD-10-PCS; CPT 58550; principal; 2024-07-04 07:30)
PROC: 0TJB8ZZ Inspection of Bladder, Via Natural or Artificial Opening Endoscopic (ICD-10-PCS; CPT 52000; 2024-07-04 07:30)
DX: N94.6 Dysmenorrhea, unspecified (principal); N92.0 Excessive and frequent menstruation with regular cycle; F41.8 Other specified anxiety disorders; F43.10 Post-traumatic stress disorder, unspecified; Z79.899 Other long term (current) drug therapy; N85.8 Other specified noninflammatory disorders of uterus
CPT/HCPCS: 58550; 36415; 81025; 85027; 96361; 96374; 96376; 88307; G0378; J0131; J0665; J0690; J1100; J1885; J2003; J2004; J2250; J2274; J2405; J2704; J3010